=== PATIENT | male | born 1990 | race Caucasian/White ===

== ENCOUNTER 2019-10-15 12:46 | Emergency (ER) | payer OTHER ==
--- NOTE | 2019-10-15 14:29 | RAD REPORT ---
EXAM DESCRIPTION: RAD - Lumbar Spine 3 Views - 10/15/2019 2:16 pm CLINICAL HISTORY: hs of MS, difficulty walking post fall;Pain Radiculopathy COMPARISON: No comparisons FINDINGS: Vertebral body heights appear maintained. No compression fracture noted. Mild L5-S1 disc t hinning with small endplate osteophytes. No spondylolysis or spondylolisthesis. IMPRESSION: Mild lower lumbar spondylosis.
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
--- NOTE | 2019-10-15 14:45 | ER ---
Nurse's Notes [facility] Name: Dominic Sauzo Age: 29 yrs Sex: Male : 1990 Arrival Date: 10/15/2019 Time: 12:48 Bed 18 Private MD: Diagnosis: Low back pain;Spondylosis, unspecified;Radiculopathy, lumbar region Presentation: 10/14 12:49 Chief complaint: EMS states: Low back pain that radiates to right leg and difficulty hb walking since yesterday. Hx of MS, reports pain is worse than his normal flare up, and he has never had difficulty walking before. Coronavirus screen: Proceed with normal triage. Ebola Screen: No symptoms or risks identified at this time. Initial Sepsis Screen: Does the patient meet any 2 criteria? No. Patient's initial sepsis screen is negative. Does the patient have a suspected source of infection? No. Patient's initial sepsis screen is negative. Risk Assessment: Do you want to hurt yourself or someone else? Patient reports no desire to harm self or others. Onset of symptoms was October 14, 2019. 12:49 Method Of Arrival: EMS: [facility] hb 12:49 Acuity: SHAYY 3 hb Historical: - Allergies: 12:51 unknown ADHD med; hb - Home Meds: 12:51 Tecfidera Oral [Active]; hb - PMHx: 12:51 ADD/ADHD; Multiple Sclerosis; hb - PSHx: 12:51 Knee surgery; hb - Immunization history:: Adult Immunizations up to date. - Social history:: Smoking status: . Screenin:28 Abuse screen: Denies threats or abuse. Nutritional screening: No deficits noted. tw2 Tuberculosis screening: No symptoms or risk factors identified. Fall Risk Secondary diagnosis (15 points) impaired mobility. Assessment: 12:50 General: Appears in no apparent distress. unkempt, well developed, Behavior is tw2 cooperative, appropriate for age, talkative. Pain: Complains of pain in back and right leg. Neuro: Level of Consciousness is awake, alert, obeys commands, Oriented to person, place, time, situation. Cardiovascular: Patient's skin is warm and dry. Respiratory: Airway is patent Respiratory effort is even, unlabored, Respiratory pattern is regular, symmetrical. GI: No signs and/or symptoms were reported involving the gastrointestinal system. : No signs and/or symptoms were reported regarding the genitourinary system. EENT: No signs and/or symptoms were reported regarding the EENT system. Musculoskeletal: Range of motion: intact in all extremities, Reports weakness in right leg. 15:27 Reassessment: Patient appears in no apparent distress at this time. No changes from tw2 previously documented assessment. Patient and/or family updated on plan of care and expected duration. Pain level reassessed. Patient is alert, oriented x 3, equal unlabored respirations, skin warm/dry/pink. Vital Signs: 12:49 BP 127 / 77; Pulse 77; Resp 16; Temp 97.9; Pulse Ox 100% ; Weight 104.33 kg; Height 5 hb ft. 2 in. (157.48 cm); Pain 10/10; 15:25 BP 125 / 67; Pulse 70; Resp 19; Pulse Ox 99% on R/A; tw2 12:49 Body Mass Index 42.07 (104.33 kg, 157.48 cm) hb ED Course: 12:48 Patient arrived in ED. hb 12:48 Bed in low position. Call light in reach. Pulse ox on. NIBP on. tw2 12:49 Elvira Reynoso RN is Primary Nurse. tw2 12:50 Simona Nance FNP-C is PHCP. snw 12:50 Ryan Orta MD is Attending Physician. snw 12:51 Triage completed. hb 12:51 Arm band placed on. hb 14:18 Lumbar Spine (3 Views) XRAY In Process Unspecified. EDMS 15:30 No provider procedures requiring assistance completed. Patient did not have IV access tw2 during this emergency room visit. Administered Medications: 15:14 Drug: Decadron 10 mg Route: IM; Site: right deltoid; tw2 15:30 Follow up: Response: No adverse reaction tw2 15:16 Drug: [place] 5 mg-325 mg 1 tabs Route: PO; tw2 15:30 Follow up: Response: No adverse reaction; Pain is decreased; RASS: Alert and Calm (0) tw2 15:16 Drug: Valium 5 mg Route: PO; tw2 15:30 Follow up: Response: No adverse reaction; Pain is decreased; RASS: Alert and Calm (0) tw2 Outcome: 14:45 Discharge ordered by MD. monge 15:30 Discharged to home via wheelchair. tw2 15:30 Condition: stable 15:30 Discharge instructions given to patient, Instructed on discharge instructions, follow up and referral plans. Demonstrated understanding of instructions, follow-up care. 15:31 Patient left the ED. tw2 Signatures: Dispatcher [employer] EDMS Simona Nnace, KERRY-C JOY LOADING MACHINE OPERATOR-Csnw Jennyfer Yin RN TREVIN Elvira Reynoso RN RN tw2
[2019-10-15] MEDS ORDERED: dexAMETHasone 10 MG/ML VIAL ONE (15:16)
[2019-10-15] MEDS ORDERED: HYDROCODONE/APAP 5/325 MG TAB ONE (15:16)
[2019-10-15] MEDS ORDERED: DIAZEPAM 5 MG TABLET ONE (15:16)
[2019-10-15 16:52] VITALS: BP 127/77; TEMP 97.9; O2SAT 100
== END 2019-10-15 15:31 | disposition home or self-care (01) ==
LOC: ER 12:46
DX: M54.16 Radiculopathy, lumbar region (principal); M47.9 Spondylosis, unspecified; F90.9 Attention-deficit hyperactivity disorder, unspecified type; Z88.8 Allergy status to other drugs, medicaments and biological substances
CPT/HCPCS: 72100; 96372; 99284; J1100